=== PATIENT | female | born 1995 | race Two or more races ===

== ENCOUNTER 2023-12-24 14:17 | Outpatient (CLI) | payer OTHER | END 2023-12-24 14:21 | disposition home or self-care (01) | LOC: PRENATAL 14:17 | PROVIDERS: ATTEND Obstetrics & Gynecology Maternal & Fetal Medicine | DX: O35.3XX0 Maternal care for (suspected) damage to fetus from viral disease in mother, not applicable or unspecified (principal); O44.00 Complete placenta previa NOS or without hemorrhage, unspecified trimester; O99.342 Other mental disorders complicating pregnancy, second trimester; O36.1999 Maternal care for other isoimmunization, unspecified trimester, other fetus; Z3A.20 20 weeks gestation of pregnancy ==

== ENCOUNTER 2024-01-14 18:27 | Outpatient (CLI) | payer OTHER ==
[~2024-01-14] VITALS: Ht 154.9 cm; Wt 71.7 kg
[2024-01-14 18:10] VITALS: BP 128/77
[2024-01-14] MEDS ORDERED: ACETAMINOPHEN 500 MG GEL..CAP PO PRN (18:45)
[2024-01-14] MEDS ORDERED: RINGERS SOLUTION,LACTATED 1,000 ML IV SCH (18:45)
[2024-01-14 20:06] VITALS: BP 109/69
[2024-01-14] MEDS ORDERED: PRENATAL TABLE1 EAC4 PO (20:21)
[2024-01-14 23:53] VITALS: BP 107/63
[2024-01-15 03:36] VITALS: BP 101/65
[2024-01-15 06:18] VITALS: BP 105/66; O2SAT 99
[2024-01-15 10:46] VITALS: BP 102/64
== END 2024-01-15 10:53 | disposition home or self-care (01) ==
LOC: OBS/DEL 18:27
PROVIDERS: ATTEND Obstetrics & Gynecology
DX: O26.892 Other specified pregnancy related conditions, second trimester (principal); Z3A.23 23 weeks gestation of pregnancy; S00.83XA Contusion of other part of head, initial encounter; W18.39XA Other fall on same level, initial encounter; Y93.89 Activity, other specified; Y92.012 Bathroom of single-family (private) house as the place of occurrence of the external cause

== ENCOUNTER → 2024-02-18 13:33 | Outpatient (CLI) | payer OTHER ==
[~2024-02-18 13:33] MED LIST: ALCOHOL PADS1 EACH TOP; HUMULIN N100 UNIT/2 SUBCUTANEO; HUMULIN R100 UNIT/1 SUBCUTANEO; INSULIN SYRING1 EA29 SUBCUTANEO; PRENATAL TABLE1 EAC4 PO
== END | disposition home or self-care (01) ==
LOC: PRENATAL 13:33
PROVIDERS: ATTEND Obstetrics & Gynecology Maternal & Fetal Medicine
DX: O26.849 Uterine size-date discrepancy, unspecified trimester (principal); O36.1999 Maternal care for other isoimmunization, unspecified trimester, other fetus; O24.419 Gestational diabetes mellitus in pregnancy, unspecified control; Z3A.28 28 weeks gestation of pregnancy

== ENCOUNTER → 2024-03-30 12:33 | Outpatient (CLI) | payer OTHER | END | disposition home or self-care (01) | LOC: PRENATAL 12:33 | PROVIDERS: ATTEND Obstetrics & Gynecology Maternal & Fetal Medicine | DX: O26.849 Uterine size-date discrepancy, unspecified trimester (principal); O36.8199 Decreased fetal movements, unspecified trimester, other fetus; Z3A.34 34 weeks gestation of pregnancy ==

== ENCOUNTER 2024-04-08 18:28 | Inpatient (IN) | payer OTHER ==
[~2024-04-08] VITALS: Ht 154.9 cm; Wt 90.7 kg
--- NOTE | 2024-04-08 19:14 | NUR ---
SE RECIBE PTE ALERTA Y ORIENTADA CON 34 SEMANAS DE EMB[place] DE DRA. LAMA. PTE REFIERE VENIR POR REFERIDO DE JOHNSON DOCTORA. PTE CON ORDENES DE ADMISION A LA MANO. SE MIDEN S/V Y DXT A PTE. PTE SE UBICA EN ARIA.
[2024-04-08] MEDS ORDERED: INSULIN REGULAR, HUMAN 1,000 UNIT/10 ML UNITS SUBCUTANEO SCH (20:15)
[2024-04-08] MEDS ORDERED: INSULIN NPH HUMAN ISOPHANE 1,000 UNITS/10 ML UNITS SUBCUTANEO SCH (21:00)
[2024-04-08 21:01] VITALS: BP 137/84
[2024-04-08 22:17] LABS: HEMATOCRIT 38.1 % (36.0-45.00); HEMOGLOBIN 13.1 g/dL (12.0-15.00); MEAN CELL VOLUME 82.4 fL (80.00-100.00); MEAN CORPUSCULAR HEMOGLOBIN 28.4 pg (27.00-32.0); MEAN CORPUSCULAR HGB CONC 34.5 g/dl (32.0-36.0); PLATELET COUNT 287 K/uL (150-450); RED BLOOD COUNT 4.62 M/uL (4.00-6.00); RED CELL DISTRIBUTION WIDTH 13.2 % (11.5-14.5)
[2024-04-08 22:30] LABS: INR 0.94; PARTIAL THROMBOPLASTIN TIME 26.6 SECONDS (22.0-34.0); PROTHROMBIN TIME 10.3 SECONDS (9.0-11.5)
[2024-04-08 22:36] LABS: ALBUMIN 2.7 gm/dL (3.4-5.0); BILIRUBIN TOTAL 0.28 mg/dL (0.3-1.2); CALCIUM 9.3 mg/dL (8.5-10.1); CREATININE SERUM 0.75 mg/dL (0.55-1.02); GFR 92.01; GLOBULINA 4.5 G/DL (2.4-3.5); POTASSIUM 4.59 mEq/L (3.5-5.1); TOTAL PROTEIN 7.2 gm/dL (6.4-8.2)
[2024-04-08 23:35] VITALS: BP 120/78; O2SAT 99
[2024-04-09 01:15] LABS: PH,URINE 5.5 (5.0-8.0); URINE APPEARANCE Clear; URINE BILIRRUBIN Negative (NEGATIVE); URINE BLOOD Negative; URINE COLOR Yellow; URINE KETONE Trace (NEGATIVE); URINE LEUKOCYTE Negative; URINE NITRATE Negative; URINE PROTEIN 30 (NEGATIVE); URINE UROBILINOGEN 0.2 E.U./dl
[2024-04-09 01:19] LABS: URINE BACTERIA 2047.5 uL (0.0-1933); URINE EPITHELIAL CELLS 82.7 uL (0.0-38.8); URINE RBC 4.2 uL (0.0-20.8); URINE WBC 15.5 uL (0.0-23.2)
[2024-04-09 01:22] LABS: URINE CAST 0.14 uL (0.0-1.40); URINE GLUCOSE 250 MG/DL (NEGATIVE)
[2024-04-09 04:03] VITALS: BP 114/71
[2024-04-09] MEDS ORDERED: INSULIN NPH HUMAN ISOPHANE 1,000 UNITS/10 ML UNITS SUBCUTANEO SCH (07:30)
[2024-04-09] MEDS ORDERED: INSULIN REGULAR, HUMAN 1,000 UNIT/10 ML UNITS SUBCUTANEO SCH (07:30)
[2024-04-09 08:52] VITALS: BP 122/77
[2024-04-09] MEDS ORDERED: PNV,CALCIUM 72/IRON/FOLIC ACID 1 TAB TABLET PO SCH (09:00)
[2024-04-09 16:03] VITALS: BP 121/81
[2024-04-09 19:54] VITALS: BP 114/77
[2024-04-10 00:53] VITALS: BP 113/70
[2024-04-10 05:19] VITALS: BP 120/79
[2024-04-10 08:24] VITALS: BP 134/67
[2024-04-10 15:32] VITALS: BP 116/73
== END 2024-04-10 19:21 | disposition home or self-care (01) | DRG 833 ==
LOC: ER 18:30 → OB/GYN 21:11 → SEC-K 21:11 → OB/GYN 04-09 00:43
PROVIDERS: Emergency Medicine; ADMIT Student in an Organized Health Care Education/Training Program; ATTEND Student in an Organized Health Care Education/Training Program
PROC: 4A1HXCZ Monitoring of Products of Conception, Cardiac Rate, External Approach (ICD-10-PCS; principal; 2024-04-08)
PROC: BY4FZZZ Ultrasonography of Third Trimester, Single Fetus (ICD-10-PCS; 2024-04-09)
DX: O24.313 Unspecified pre-existing diabetes mellitus in pregnancy, third trimester (principal); O24.414 Gestational diabetes mellitus in pregnancy, insulin controlled; O26.843 Uterine size-date discrepancy, third trimester; O36.8130 Decreased fetal movements, third trimester, not applicable or unspecified; Z3A.35 35 weeks gestation of pregnancy; Z20.822 Contact with and (suspected) exposure to COVID-19; Z79.4 Long term (current) use of insulin

== ENCOUNTER 2024-04-15 12:30 | Outpatient (CLI) | payer OTHER | END 2024-04-15 13:56 | disposition home or self-care (01) | LOC: NST 12:30 | PROVIDERS: ATTEND Student in an Organized Health Care Education/Training Program | DX: Z34.83 Encounter for supervision of other normal pregnancy, third trimester (principal) ==

== ENCOUNTER 2024-04-19 12:08 | Outpatient (CLI) | payer OTHER | END 2024-04-19 19:45 | disposition home or self-care (01) | LOC: OBS/DEL 12:08 | PROVIDERS: ATTEND Obstetrics & Gynecology | DX: O26.893 Other specified pregnancy related conditions, third trimester (principal); O24.419 Gestational diabetes mellitus in pregnancy, unspecified control; Z3A.37 37 weeks gestation of pregnancy ==

== ENCOUNTER 2024-04-27 07:13 | Inpatient (IN) | payer OTHER ==
[~2024-04-27] VITALS: Ht 154.9 cm; Wt 91.6 kg
[2024-04-27] MEDS ORDERED: AMPICILLIN SODIUM 2,000 MG VIAL ONE (07:31)
[2024-04-27 07:41] VITALS: BP 135/77
[2024-04-27] MEDS ORDERED: HUMULIN R100 UNIT/1 SUBCUTANEO ×2 (07:49→07:51)
[2024-04-27] MEDS ORDERED: HUMULIN N100 UNIT/2 SUBCUTANEO ×2 (07:50→07:51)
[2024-04-27] MEDS ORDERED: RINGERS SOLUTION,LACTATED 1,000 ML IV SCH (08:00)
[2024-04-27] MEDS ORDERED: AMPICILLIN SODIUM 2,000 MG VIAL IV ONE (08:00)
[2024-04-27] MEDS ORDERED: MISOPROSTOL 25 MCG TABLET ONE (08:49)
[2024-04-27 08:57] LABS: HEMATOCRIT 40.5 % (36.0-45.00); HEMOGLOBIN 13.7 g/dL (12.0-15.00); MEAN CELL VOLUME 83.8 fL (80.00-100.00); MEAN CORPUSCULAR HEMOGLOBIN 28.3 pg (27.00-32.0); MEAN CORPUSCULAR HGB CONC 33.8 g/dl (32.0-36.0); PLATELET COUNT 253 K/uL (150-450); RED BLOOD COUNT 4.83 M/uL (4.00-6.00); RED CELL DISTRIBUTION WIDTH 13.6 % (11.5-14.5)
[2024-04-27] MEDS ORDERED: MISOPROSTOL 25 MCG/4 ML GEL.W.APPL ONE ×2 (08:57→18:24)
[2024-04-27] MEDS ORDERED: MISOPROSTOL 25 MCG/4 ML GEL.W.APPL VAG ONE ×3 (09:00→18:15)
[2024-04-27 09:02] LABS: PH,URINE 5.5 (5.0-8.0); URINE APPEARANCE Clear; URINE BILIRRUBIN Negative (NEGATIVE); URINE BLOOD Negative; URINE COLOR Yellow; URINE GLUCOSE Negative (NEGATIVE); URINE KETONE Negative (NEGATIVE); URINE LEUKOCYTE Negative; URINE NITRATE Negative; URINE PROTEIN Negative (NEGATIVE); URINE UROBILINOGEN 0.2 E.U./dl
[2024-04-27 09:03] LABS: URINE BACTERIA 939.9 uL (0.0-1933); URINE EPITHELIAL CELLS 60.3 uL (0.0-38.8); URINE RBC 21.2 uL (0.0-20.8); URINE WBC 21.6 uL (0.0-23.2)
[2024-04-27 09:20] LABS: URINE CAST 0.29 uL (0.0-1.40)
[2024-04-27 09:47] LABS: INR < 0.93; PARTIAL THROMBOPLASTIN TIME 24.7 SECONDS (22.0-34.0)
[2024-04-27 09:56] LABS: ALBUMIN 2.9 gm/dL (3.4-5.0); BILIRUBIN TOTAL 0.25 mg/dL (0.3-1.2); CALCIUM 9.4 mg/dL (8.5-10.1); CREATININE SERUM 0.63 mg/dL (0.55-1.02); GFR 112.52; GLOBULINA 3.6 G/DL (2.4-3.5); POTASSIUM 4.12 mEq/L (3.5-5.1); TOTAL PROTEIN 6.5 gm/dL (6.4-8.2)
[2024-04-27 12:00] VITALS: BP 135/71
[2024-04-27] MEDS ORDERED: AMPICILLIN SODIUM 1,000 MG VIAL IV SCH (12:00)
[2024-04-27 15:16] VITALS: BP 120/68
[2024-04-27 20:22] VITALS: BP 146/70
[2024-04-27 23:48] VITALS: BP 133/60
[2024-04-28 03:04] VITALS: BP 138/69
[2024-04-28 07:56] VITALS: BP 130/81
[2024-04-28] MEDS ORDERED: MISOPROSTOL 25 MCG/4 ML GEL.W.APPL VAG ONE (08:15)
[2024-04-28 11:52] VITALS: BP 123/66
[2024-04-28] MEDS ORDERED: CEFAZOLIN SODIUM 2,000 MG IV ONE (12:15)
[2024-04-28] MEDS ORDERED: CEFAZOLIN SODIUM 1,000 MG VIAL IV NR (14:30)
[2024-04-28 15:39] VITALS: BP 158/74
[2024-04-28] MEDS ORDERED: ERYTHROMYCIN BASE OPHT 1GM EACH TUBE OP ONE (16:52)
[2024-04-28] MEDS ORDERED: OXYTOCIN 10 UNITS/ML VIAL ONE ×2 (16:52→21:41)
[2024-04-28 17:07] VITALS: BP 118/77
[2024-04-28] MEDS ORDERED: MEPERIDINE HCL/PF 25 MG/ML VIAL IV PRN (19:00)
[2024-04-28] MEDS ORDERED: PROMETHAZINE HCL 25 MG/ML AMPUL IV PRN (19:00)
[2024-04-28] MEDS ORDERED: OXYTOCIN 1,000 ML IV SCH (19:00)
[2024-04-28] MEDS ORDERED: KETOROLAC TROMETHAMINE 30 MG VIAL IV PRN (19:00)
[2024-04-28] MEDS ORDERED: MORPHINE SULFATE 4 MG/ML VIAL IV ONE (21:25)
[2024-04-28 23:40] LABS: HEMATOCRIT 42.9 % (36.0-45.00); HEMOGLOBIN 14.6 g/dL (12.0-15.00); MEAN CORPUSCULAR HEMOGLOBIN 28.5 pg (27.00-32.0); MEAN CORPUSCULAR HGB CONC 33.9 g/dl (32.0-36.0); PLATELET COUNT 229 K/uL (150-450); RED BLOOD COUNT 5.11 M/uL (4.00-6.00); RED CELL DISTRIBUTION WIDTH 13.5 % (11.5-14.5)
[2024-04-29 00:41] VITALS: BP 115/71
[2024-04-29] MEDS ORDERED: IBUprofen 800 MG TABLET PO PRN (07:00)
[2024-04-29] MEDS ORDERED: OxyCODONE HCL/APAP UD (PERCOCET) PO PRN (07:00)
[2024-04-29 08:25] VITALS: BP 130/79
[2024-04-29] MEDS ORDERED: SIMETHICONE 125 MG CAPSULE PO SCH (09:00)
[2024-04-29] MEDS ORDERED: DOCUSATE SODIUM 100MG CAP PO SCH (09:00)
[2024-04-30 01:00] VITALS: BP 121/79
[2024-04-30 09:12] VITALS: BP 135/83
[2024-04-30 15:52] VITALS: BP 104/66
[2024-05-01 02:03] VITALS: BP 128/81
[2024-05-01 08:53] VITALS: BP 117/79
[2024-05-01] MEDS ORDERED: FF) RHO(D) IMMUNE GLOBULIN (POM) IM SCH (12:45)
== END 2024-05-01 14:44 | disposition home or self-care (01) | DRG 788 ==
LOC: OB/GYN 07:13 → LDR 07:13 → OB/GYN 08:57
PROVIDERS: ADMIT Student in an Organized Health Care Education/Training Program; ATTEND Student in an Organized Health Care Education/Training Program
PROC: 3E0P7VZ Introduction of Hormone into Female Reproductive, Via Natural or Artificial Opening (ICD-10-PCS; 2024-04-27)
PROC: 4A1HXCZ Monitoring of Products of Conception, Cardiac Rate, External Approach (ICD-10-PCS; 2024-04-27)
PROC: 3E033VJ Introduction of Other Hormone into Peripheral Vein, Percutaneous Approach (ICD-10-PCS; 2024-04-28)
PROC: 10D00Z1 Extraction of Products of Conception, Low, Open Approach (ICD-10-PCS; principal; 2024-04-28 16:00)
DX: O61.0 Failed medical induction of labor (principal); O24.420 Gestational diabetes mellitus in childbirth, diet controlled; O99.824 Streptococcus B carrier state complicating childbirth; O99.214 Obesity complicating childbirth; E66.9 Obesity, unspecified; Z3A.38 38 weeks gestation of pregnancy; Z37.0 Single live birth